=== PATIENT | male | born 2000 | race Caucasian/White ===

== ENCOUNTER 2020-08-28 18:29 | Emergency (ER) | payer OTHER ==
[~2020-08-28 18:29] MED LIST: ADDERALL XR30 MG PO; AUGMENTIN 875-875 MG PO; AURALGAN 15 ML15 ML OT; FLONASE0.05 MG/AC NS; KEFLEX500 MG PO; SUDAFED60 M1 PO; TRILEPTAL150 MG PO
[2020-08-28] MEDS ORDERED: AMOXICILLIN500 M2 PO (19:06)
[2020-08-28] MEDS ORDERED: Motrin,Rufen800 MG PO (19:06)
== END 2020-08-28 19:09 | disposition home or self-care (01) ==
LOC: ED 18:29
DX: K08.89 Other specified disorders of teeth and supporting structures (principal)

== ENCOUNTER 2021-12-28 22:09 | Emergency (ER) | payer OTHER ==
[~2021-12-28] VITALS: Ht 175.2 cm; Wt 99.8 kg
[~2021-12-28 22:09] MED LIST changes: +AMOXICILLIN500 M2 PO; +Motrin,Rufen800 MG PO
== END 2021-12-29 02:03 | disposition home or self-care (01) ==
LOC: ED 22:09
DX: S16.1XXA Strain of muscle, fascia and tendon at neck level, initial encounter (principal); R51.9 Headache, unspecified; X50.0XXA Overexertion from strenuous movement or load, initial encounter; Y93.89 Activity, other specified; Y92.89 Other specified places as the place of occurrence of the external cause; Y99.8 Other external cause status

== ENCOUNTER 2022-11-27 21:34 | Emergency (ER) | payer OTHER ==
[~2022-11-27] VITALS: Ht 177.8 cm; Wt 113.4 kg
[2022-11-27 22:16] LABS: BASO # 0.1 10*3/uL (0.0-0.1); BASO % 0.9 % (0.0-1.0); EOS # 0.1 10*3/uL (0.0-0.4); EOS % 0.8 % (1.0-4.0); HEMATOCRIT 45.2 % (42.0-52.0); LYMPH # 2.1 10*3/uL (1.3-4.4); LYMPH % 31.5 % (27.0-41.0); MEAN CELL VOLUME 86.4 fl (80.0-94.0); MEAN CORPUSCULAR HGB CONC 34.7 g/dl (33.0-37.0); MEAN PLATELET VOLUME 9.5 fl (9.6-12.3); MONO # 0.4 10*3/uL (0.1-1.0); MONO % 6.5 % (3.0-9.0); NEUT % 60.3 % (47.0-73.0); PLATELET COUNT AUTOMATED 259 10*3/uL (130-400); RED BLOOD COUNT 5.23 10*6/uL (4.50-5.90); RED CELL DISTRI WIDTH 12.2 % (0-14.5); WHITE BLOOD COUNT 6.6 10*3/uL (4.8-10.8)
[2022-11-27 22:35] LABS: ALKALINE PHOSPHATASE 71 U/L (46-116); BUN 9 mg/dl (9-23); CHLORIDE 107 mmol/L (98-107); POTASSIUM 3.9 mmol/L (3.4-5.1); SGPT/ALT 41 U/L (10-49); THYROID STIM HORMONE (HS) 1.179 uIU/ml (0.550-4.780); TOTAL PROTEIN 7.8 gm/dL (6.0-8.0)
[2022-11-27 22:37] LABS: URINE AMPHETAMINES Negative (1000ng/ml); URINE BARBITURATES Negative (200ng/ml); URINE BENZODIAZEPINES Negative (200ng/ml); URINE CANNABINOIDS (THC) Negative (50ng/ml); URINE COCAINE Negative (300ng/ml); URINE METHADONE Negative (300ng/ml); URINE OPIATES Negative (300ng/ml); URINE PHENCYCLIDINE Negative (25ng/ml)
== END 2022-11-27 23:16 | disposition home or self-care (01) ==
LOC: ED 21:34
PROVIDERS: Physician Assistant
DX: F41.9 Anxiety disorder, unspecified (principal); Z79.899 Other long term (current) drug therapy